=== PATIENT | female | born 1990 | race Caucasian/White ===

== ENCOUNTER → 2020-02-12 10:28 | Outpatient (POV) | payer OTHER, SELFPAY | PROVIDERS: Visit Provider Dermatology | DX: Z00.00 Encounter for general adult medical examination without abnormal findings (principal) ==

== ENCOUNTER → 2020-07-16 11:10 | Outpatient (CLI) | payer OTHER, SELFPAY | PROVIDERS: PCP Physician Assistant; Visit Provider Physician Assistant | DX: Z01.818 Encounter for other preprocedural examination (principal); Z03.818 Encounter for observation for suspected exposure to other biological agents ruled out | CPT/HCPCS: U0003 ==

== ENCOUNTER → 2021-06-16 12:29 | Outpatient (CLI) | payer OTHER, SELFPAY ==
[2021-06-16 13:21] LABS: Coronavirus 19, PCR Not Detected (NotDetected); Influenza A, PCR Not Detected (NotDetected); Influenza B, PCR Not Detected (NotDetected)
== END ==
PROVIDERS: PCP Physician Assistant; Visit Provider Nurse Practitioner
DX: Z20.822 Contact with and (suspected) exposure to COVID-19 (principal)
CPT/HCPCS: C9803; U0003; U0005

== ENCOUNTER → 2023-03-18 14:34 | Outpatient (CLI) | payer OTHER, SELFPAY ==
[2023-03-18 15:58] LABS: Chol/HDL Ratio 4.5 (1-3.5); Cholesterol 268 mg/dl (140-200); HDL Cholesterol 59 mg/dl (40-60); Triglycerides 142 mg/dl (30-150); VLDL Cholesterol 28 mg/dL (0-40)
[2023-03-18 16:09] LABS: Direct LDL Cholesterol 171.89 mg/dL (100-129)
== END ==
PROVIDERS: PCP Physician Assistant; Visit Provider Physician Assistant
DX: Z13.220 Encounter for screening for lipoid disorders (principal)
CPT/HCPCS: 36415; 80061

== ENCOUNTER 2025-06-18 15:34 | Outpatient (CLI) | payer BC, SELFPAY ==
[2025-06-18 17:04] LABS: Alanine Aminotransferase 15 U/L (12-78); Albumin Level 4.5 g/dl (3.5-5.0); Alkaline Phosphatase 54 U/L (38-126); Aspartate Amino Transferase 23 U/L (14-36); Bilirubin,Direct 0.1 mg/dl (0.0-0.4); Bilirubin,Indirect 0.6 mg/dL (0.0-0.9); Bilirubin,Total 0.7 mg/dl (0.2-1.3); Bilirubin,Unconjugated 0.6 mg/dL (0.0-1.1); Total Protein,Serum 7.5 g/dl (6.3-8.2)
== END 2025-06-18 23:59 | disposition home or self-care (01) ==
LOC: LAB 15:36
PROVIDERS: PCP Physician Assistant; Visit Provider Nurse Practitioner
DX: B35.1 Tinea unguium (principal)
CPT/HCPCS: 36415; 80076